=== PATIENT | male | born 1960 | race Caucasian/White ===

== ENCOUNTER 2017-07-28 12:49 | Emergency (ER) | payer BC ==
[2017-07-28 13:20] VITALS: BP 130/84
--- NOTE | 2017-07-28 14:01 | EDM.PDOC ---
ED HPI GENERAL MEDICAL PROBLEM - General Chief Complaint: Genitourinary Problem Stated Complaint: SICK Time Seen by Provider: 07/28/17 13:50 Source of Information: Reports: Patient History Limitations: Reports: No Limitations - History of Present Illness INITIAL COMMENTS - FREE TEXT/NARRATIVE: Patient presents to ER with c/o generalized fatigue and lethargy. He states he has been feeling very tired for the past few weeks and laying around a lot. He states he has a 2/10 back pain. He states this is how he has felt in the past when he has had a kidney infection. He states he has had several kidney infections. He states he was to be in [place] today to have bilateral nephrostomy tubes changed, an appointment that he has missed. He states he is very cold, with some chills and sweating last evening. Onset: Gradual Duration: Week(s):, Constant, Getting Worse Location: Reports: Back Quality: Reports: Ache, Dull Severity: Mild Improves with: Reports: None Worsens with: Reports: None Associated Symptoms: Reports: Fever/Chills, Malaise Back Pain Score (Numeric/FACES): 2 - Related Data Allergies Allergy/AdvReac Type Severity Reaction Status Date / Time No Known Allergies Allergy Verified 10/11/15 14:13 Home Meds: Home Meds . [No Known Home Meds] 09/13/16 [History] Past Medical History Other Genitourinary History: has bilateral nephrorostomy Musculoskeletal History: Reports: Back Pain, Chronic Neurological History: Reports: Other (See Below) Other Neuro History: brain tumor Immunologic History: Reports: Immunosuppression Oncologic (Cancer) History: Reports: Colon, Metastatic, Prostate, Other (See Below) Other Oncologic History: rectal CA - Past Surgical History GI Surgical History: Reports: Colostomy Other GI Surgeries/Procedures: has a colostomy Other Male Surgeries/Procedures: has bilaterial nephrorostomy tubes Musculoskeletal Surgical History: Reports: Shoulder Surgery Social & Family History - Tobacco Use Smoking Status *Q: Never Smoker Second Hand Smoke Exposure: No - Caffeine Use Caffeine Use: Reports: Soda - Alcohol Use Days Per Week of Alcohol Use: 5 - Recreational Drug Use Recreational Drug Use: No Recreational Drug Type: Reports: Marijuana/Hashish - Living Situation & Occupation Living situation: Reports: Occupation: Disabled ED ROS GENERAL - Review of Systems Review Of Systems: ROS reveals no pertinent complaints other than HPI. ED EXAM, GENERAL - Physical Exam Exam: See Below Exam Limited By: No Limitations General Appearance: Alert, WD/WN, No Apparent Distress Ears: Normal External Exam Nose: Normal Inspection Throat/Mouth: Normal Inspection, Normal Lips, Normal Teeth, Normal Gums, Normal Oropharynx, Normal Voice, No Airway Compromise Head: Atraumatic, Normocephalic Neck: Normal Inspection, Supple, Non-Tender, Full Range of Motion Respiratory/Chest: No Respiratory Distress, Normal Breath Sounds, No Accessory Muscle Use, Chest Non-Tender, Crackles (right base) Cardiovascular: Normal Peripheral Pulses, Regular Rate, Rhythm, No Edema GI/Abdominal: Normal Bowel Sounds Back Exam: Normal Inspection, CVA Tenderness (L) (nephrostomy), CVA Tenderness ( R) (nephrostomy) Extremities: Normal Inspection Neurological: Alert, Oriented Psychiatric: Normal Affect, Normal Mood Skin Exam: Warm, Dry, Intact, Normal Color, No Rash Lymphatic: No Adenopathy Course - Vital Signs Last Recorded V/S: Last Vital Signs Temp 98.8 F 07/28/17 13:18 Pulse 113 H 07/28/17 13:18 Resp 16 07/28/17 13:18 BP 130/84 07/28/17 13:18 Pulse Ox 99 07/28/17 13:18 - Orders/Labs/Meds Orders: Active Orders 24 hr Category Date Time Status CULTURE URINE [RM] Stat Lab 07/28/17 14:20 Received Labs: Laboratory Tests 07/28/17 07/28/17 07/28/17 Range/Units 14:00 14:00 14:20 WBC 14.1 H (5.0-10.0) 10^3/uL RBC 3.98 L (4.6-6.2) 10^6/uL Hgb 11.9 L (14.0-18.0) g/dL Hct 36.9 L (40.0-54.0) % MCV 92.7 (80-100) fL MCH 29.9 (27.0-34.0) pg MCHC 32.2 L (33.0-35.0) g/dL Plt Count 240 (150-450) 10^3/uL Neut % (Auto) 86.5 H (42.2-75.2) % Lymph % (Auto) 4.5 L (20.5-50.1) % [place] % (Auto) 8.8 H (2-8) % Eos % (Auto) 0.1 L (1.0-3.0) % Baso % (Auto) 0.1 (0.0-1.0) % Sodium 135 (135-145) mmol/L Potassium 4.3 (3.6-5.0) mmol/L Chloride 99 L (101-111) mmol/L Carbon Dioxide 24.0 (21.0-31.0) mmol/L Anion Gap 16.3 BUN 14 (7-18) mg/dL Creatinine 1.0 (0.6-1.3) mg/dL Est Cr Clr Drug Dosing 78.95 mL/min Estimated GFR (MDRD) > 60 Glucose 111 H (74-105) mg/dL Calcium 9.2 (8.4-10.2) mg/dl Urine Color Yellow (YELLOW) Urine Appearance Turbid (CLEAR) Urine pH 5.5 (5.0-9.0) Ur Specific [place] 1.020 (1.005-1.030) Urine Protein 100 H (NEGATIVE) Urine Glucose (UA) Negative (NEGATIVE) Urine Ketones 40 H (NEGATIVE) Urine Occult Blood Moderate H (NEGATIVE) Urine Nitrite Negative (NEGATIVE) Urine Bilirubin Small H (NEGATIVE) Urine Urobilinogen 0.2 (0.2-1.0) mg/dL Ur Leukocyte Esterase Small H (NEGATIVE) Urine RBC 10-20 H /HPF Urine WBC 40-50 H (0-5/HPF) /HPF Ur Epithelial Cells Few /HPF Amorphous Sediment Moderate (0/HPF) /HPF Urine Bacteria Moderate H (0-FEW/HPF) /HPF Urine Mucus Few H /LPF Urine Yeast Moderate H (0/HPF) /HPF Departure - Departure Time of Disposition: 15:17 Disposition: Home, Self-Care 01 Condition: Fair Clinical Impression: Pyelonephritis, Altered elimination pattern due to nephrostomy, 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 Dumont in 2-3 days Make appointment to have nephrostomy tubes changed - My Orders Last 24 Hours: My Active Orders 07/28/17 14:20 CULTURE URINE [] Stat - Assessment/Plan Last 24 Hours: My Active Orders 07/28/17 14:20 CULTURE URINE [] Stat
[2017-07-28 14:27] LABS: CHLORIDE,CL 99 mmol/L (101-111); SODIUM,NA 135 mmol/L (135-145)
== END 2017-07-28 15:26 | disposition home or self-care (01) ==
LOC: DL.ED 12:49
DX: N12 Tubulo-interstitial nephritis, not specified as acute or chronic (principal); R53.83 Other fatigue; C20 Malignant neoplasm of rectum; C79.9 Secondary malignant neoplasm of unspecified site; Z93.6 Other artificial openings of urinary tract status; Z98.890 Other specified postprocedural states; Z85.038 Personal history of other malignant neoplasm of large intestine; Z85.46 Personal history of malignant neoplasm of prostate
CPT/HCPCS: 36415; 80048; 81001; 85025; 87086; 87088; 87186; 99283

== ENCOUNTER 2018-01-29 09:44 | Emergency (ER) | payer BC ==
--- NOTE | 2018-01-29 09:59 | EDM.PDOC ---
ED HPI GENERAL MEDICAL PROBLEM - General Chief Complaint: Gastrointestinal Problem Stated Complaint: constipation [phone] Time Seen by Provider: 01/29/18 09:57 Source of Information: Reports: Patient, Old Records, RN, RN Notes Reviewed History Limitations: Reports: No Limitations - History of Present Illness INITIAL COMMENTS - FREE TEXT/NARRATIVE: Presents from home by POV with c/o generalized abdominal pain/discomfort with constipation and no BM x10 days. Pt with Hx of rectal and prostate CA and ostomy and nephrostomy tubes. Denies fevers, chills, or vomiting. Admits to mild nausea and feeling that abd. is bloated. Duration: Day(s): (10), Constant, Getting Worse Location: Reports: Abdomen Quality: Reports: Ache, Other (cramping) Improves with: Reports: None Worsens with: Reports: None Associated Symptoms: Reports: No Other Symptoms - Related Data Allergies Allergy/AdvReac Type Severity Reaction Status Date / Time No Known Allergies Allergy Verified 10/11/15 14:13 Home Meds: Home Meds valACYclovir HCl [valACYclovir] 1 tab PO DAILY 01/29/18 [History] Past Medical History Gastrointestinal History: Reports: Chronic Constipation Other Genitourinary History: has bilateral nephrorostomy Musculoskeletal History: Reports: Back Pain, Chronic Neurological History: Reports: Other (See Below) Other Neuro History: brain tumor Immunologic History: Reports: Immunosuppression Oncologic (Cancer) History: Reports: Colon, Metastatic, Prostate, Other (See Below) Other Oncologic History: rectal CA - Past Surgical History GI Surgical History: Reports: Colostomy Other GI Surgeries/Procedures: has a colostomy Other Male Surgeries/Procedures: has bilaterial nephrorostomy tubes Musculoskeletal Surgical History: Reports: Shoulder Surgery Social & Family History - Family History Family Medical History: Noncontributory - Tobacco Use Smoking Status *Q: Never Smoker Second Hand Smoke Exposure: No - Caffeine Use Caffeine Use: Reports: Soda - Alcohol Use Days Per Week of Alcohol Use: 5 - Recreational Drug Use Recreational Drug Use: No Recreational Drug Type: Reports: Marijuana/Hashish - Living Situation & Occupation Living situation: Reports: , with Spouse Occupation: Disabled ED ROS GENERAL - Review of Systems Review Of Systems: ROS reveals no pertinent complaints other than HPI. ED EXAM, GI/ABD - Physical Exam Exam: See Below Exam Limited By: No Limitations General Appearance: Alert, Thin, Other (chronically ill appearing) Eyes: Bilateral: Normal Appearance (no scleral icterus) Nose: Normal Inspection Throat/Mouth: Normal Voice, No Airway Compromise, Other (dry oral membranes) Head: Atraumatic, Normocephalic Neck: Normal Inspection Respiratory/Chest: No Respiratory Distress, Lungs Clear, No Accessory Muscle Use , Decreased Breath Sounds Cardiovascular: Regular Rate, Rhythm GI/Abdominal Exam: Soft (with mild distention), Abnormal Bowel Sounds (rare tympanic bowel sounds), Other (empty ostomy bag LLQ abdomen). No: Guarding, Rigid, Rebound (Male) Exam: Deferred Rectal (Males) Exam: Deferred Back Exam: Normal Inspection Extremities: Normal Inspection Neurological: Alert, Oriented, No Motor/Sensory Deficits Psychiatric: Normal Mood Skin Exam: Warm, Dry, Intact, Normal Color, Zoster-Like Rash (resolving zoster Rt flank-abdomen) Course - Vital Signs Last Recorded V/S: Last Vital Signs Temp 36.5 C 01/29/18 10:03 Pulse 86 01/29/18 10:03 Resp 16 01/29/18 10:03 BP 139/105 H 01/29/18 10:03 Pulse Ox 100 01/29/18 10:03 - Orders/Labs/Meds Orders: Active Orders 24 hr Category Date Time Status Peripheral IV Care [RC] . DIRECTED Care 01/29/18 10:14 Active CULTURE URINE [RM] Stat Lab 01/29/18 10:38 Received Sodium Chloride 0.9% [Saline Flush] Med 01/29/18 10:13 Active 10 ml FLUSH ASDIRECTED PRN Peripheral IV Insertion Adult [OM.PC] Stat Oth 01/29/18 10:13 Ordered Medication Orders Sodium Chloride (Saline Flush) 10 ml FLUSH ASDIRECTED PRN PRN Reason: Keep Vein Open Last Admin: 01/29/18 10:53 Dose: 10 ml Labs: Laboratory Tests 01/29/18 01/29/18 01/29/18 Range/Units 10:22 10:22 10:22 WBC 12.4 H (5.0-10.0) 10^3/uL RBC 4.35 L (4.6-6.2) 10^6/uL Hgb 13.0 L (14.0-18.0) g/dL Hct 40.2 (40.0-54.0) % MCV 92.4 (80-100) fL MCH 29.9 (27.0-34.0) pg MCHC 32.3 L (33.0-35.0) g/dL Plt Count 329 D (150-450) 10^3/uL Neut % (Auto) 79.9 H (42.2-75.2) % Lymph % (Auto) 8.1 L (20.5-50.1) % [place] % (Auto) 8.1 H (2-8) % Eos % (Auto) 3.3 H (1.0-3.0) % Baso % (Auto) 0.6 (0.0-1.0) % Add Manual Diff Yes Neutrophils % (Manual) 82 H (42-75) % Lymphocytes % (Manual) 10 L (20-50) % Monocytes % (Manual) 7 (2-8) % Eosinophils % (Manual) 1 (1-3) % Sodium 132 L (135-145) mmol/L Potassium 4.2 (3.6-5.0) mmol/L Chloride 100 L (101-111) mmol/L Carbon Dioxide 22.0 (21.0-31.0) mmol/L Anion Gap 14.2 BUN 11 (7-18) mg/dL Creatinine 1.1 (0.6-1.3) mg/dL Est Cr Clr Drug Dosing 68.15 mL/min Estimated GFR (MDRD) > 60 BUN/Creatinine Ratio 10.00 Glucose 79 (74-105) mg/dL Lactic Acid 1.3 (0.5-2.2) mmol/L Calcium 8.8 (8.4-10.2) mg/dl Total Bilirubin 0.4 (0.2-1.0) mg/dL AST 18 (10-42) IU/L ALT 8 L (10-60) IU/L Alkaline Phosphatase 65 (42-121) IU/L Total Protein 7.1 (6.7-8.2) g/dl Albumin 3.5 (3.2-5.5) g/dl Globulin 3.6 Albumin/Globulin Ratio 0.97 Amylase 74 (28-100) U/L Lipase 31 (22-51) U/L Urine Color (YELLOW) Urine Appearance (CLEAR) Urine pH (5.0-9.0) Ur Specific [place] (1.005-1.030) Urine Protein (NEGATIVE) Urine Glucose (UA) (NEGATIVE) Urine Ketones (NEGATIVE) Urine Occult Blood (NEGATIVE) Urine Nitrite (NEGATIVE) Urine Bilirubin (NEGATIVE) Urine Urobilinogen (0.2-1.0) mg/dL Ur Leukocyte Esterase (NEGATIVE) Urine RBC /HPF Urine WBC (0-5/HPF) /HPF Ur Epithelial Cells /HPF Urine Bacteria (0-FEW/HPF) /HPF Urine Mucus /LPF Urine Yeast (0/HPF) /HPF 01/29/18 Range/Units 10:38 WBC (5.0-10.0) 10^3/uL RBC (4.6-6.2) 10^6/uL Hgb (14.0-18.0) g/dL Hct (40.0-54.0) % MCV (80-100) fL MCH (27.0-34.0) pg MCHC (33.0-35.0) g/dL Plt Count (150-450) 10^3/uL Neut % (Auto) (42.2-75.2) % Lymph % (Auto) (20.5-50.1) % [place] % (Auto) (2-8) % Eos % (Auto) (1.0-3.0) % Baso % (Auto) (0.0-1.0) % Add Manual Diff Neutrophils % (Manual) (42-75) % Lymphocytes % (Manual) (20-50) % Monocytes % (Manual) (2-8) % Eosinophils % (Manual) (1-3) % Sodium (135-145) mmol/L Potassium (3.6-5.0) mmol/L Chloride (101-111) mmol/L Carbon Dioxide (21.0-31.0) mmol/L Anion Gap BUN (7-18) mg/dL Creatinine (0.6-1.3) mg/dL Est Cr Clr Drug Dosing mL/min Estimated GFR (MDRD) BUN/Creatinine Ratio Glucose (74-105) mg/dL Lactic Acid (0.5-2.2) mmol/L Calcium (8.4-10.2) mg/dl Total Bilirubin (0.2-1.0) mg/dL AST (10-42) IU/L ALT (10-60) IU/L Alkaline Phosphatase (42-121) IU/L Total Protein (6.7-8.2) g/dl Albumin (3.2-5.5) g/dl Globulin Albumin/Globulin Ratio Amylase (28-100) U/L Lipase (22-51) U/L Urine Color Yellow (YELLOW) Urine Appearance Cloudy (CLEAR) Urine pH 6.0 (5.0-9.0) Ur Specific [place] 1.015 (1.005-1.030) Urine Protein 30 H (NEGATIVE) Urine Glucose (UA) Negative (NEGATIVE) Urine Ketones Negative (NEGATIVE) Urine Occult Blood Trace-lysed H (NEGATIVE) Urine Nitrite Negative (NEGATIVE) Urine Bilirubin Negative (NEGATIVE) Urine Urobilinogen 0.2 (0.2-1.0) mg/dL Ur Leukocyte Esterase Small H (NEGATIVE) Urine RBC 0-5 /HPF Urine WBC 40-50 H (0-5/HPF) /HPF Ur Epithelial Cells Occasional /HPF Urine Bacteria Moderate H (0-FEW/HPF) /HPF Urine Mucus Moderate H /LPF Urine Yeast Many H (0/HPF) /HPF Meds: Medications Generic Name Dose Route Start Last Admin Trade Name Freq PRN Reason Stop Dose Admin Sodium Chloride 10 ml 01/29/18 10:13 01/29/18 10:53 Saline Flush FLUSH 10 ml ASDIRECTED PRN Administration Keep Vein Open Discontinued Medications Generic Name Dose Route Start Last Admin Trade Name Freq PRN Reason Stop Dose Admin Sodium Chloride 1,000 mls @ 999 mls/hr 01/29/18 10:14 01/29/18 10:53 Normal Saline IV 01/29/18 11:14 999 mls/hr .BOLUS ONE Administration Iopamidol 75 ml 01/29/18 10:52 01/29/18 11:34 Isovue-300 (61%) IVPUSH 01/29/18 10:53 75 ml ONETIME ONE Administration - Radiology Interpretation Free Text/Narrative:: CT Abd/Pelvis: new massive ascites, chronic metastatic lesions and other findings as per Rad. report. 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 DIRECTED 01/29/18 10:38 CULTURE URINE [RM] Stat - Assessment/Plan Last 24 Hours: My Active Orders 01/29/18 10:13 Sodium Chloride 0.9% [Saline Flush] 10 ml FLUSH ASDIRECTED PRN Peripheral IV Insertion Adult [OM.PC] Stat 01/29/18 10:14 Peripheral IV Care [RC] . DIRECTED 01/29/18 10:38 CULTURE URINE [RM] Stat
[2018-01-29 10:05] VITALS: BP 139/105
[2018-01-29] MEDS ORDERED: Sodium Chloride 0.9% 10 ML Syringe FLUSH PRN (10:13)
[2018-01-29] MEDS ORDERED: Sodium Chloride 0.9% 1,000 ML IV ONE (10:14)
[2018-01-29 10:50] LABS: CHLORIDE,CL 100 mmol/L (101-111); SODIUM,NA 132 mmol/L (135-145)
[2018-01-29] MEDS ORDERED: Iopamidol 612 MG/ML 75 ML Bottle IVPUSH ONE (10:52)
--- NOTE | 2018-01-29 12:01 | CT ---
CLINICAL HISTORY: 57-year-old colorectal cancer patient with abdominal pain (colostomy but "no bowel movement for 10 days") who was reported on most recent CT scan this institution 03 June 2017 to have "bilateral nephrostomy tubes, renal cysts, cystectomy, and metastatic disease liver and both lung bas es". Reevaluate please. SCAN TECHNIQUE: Volume acquisition of data from the abdomen and pelvis obtained without oral contrast but during the intravenous 75 cc nonionic Isovue contrast while the patient was lying supine on the Siemens multislice scanner [place], [place]. All data archived in the PACS system for storage, reformatting and study. INTERPRETATION: Abnormal. 1. Massive ascites (new since May 2017 exam) fills the entire peritoneal cavity. Probable peritoneal tumor implants. 2. Large 5.0 x 6.0 x 7.0 cm diameter intrahepatic solid mass lesion left lobe of the liver that was p resent on previous exam 03 June. Two additional small mass lesions periphery right lobe. No abnormal dilatation of the intra/extrahepa tic biliary ducts. 3. Small hiatus hernia. Stomach, spleen, pancreas and adrenal glands otherwise unremarkable. No obsti pation or SBO. 4. Two large benign cyst upper pole right kidney measuring 3.5 and 4.0 cm diameter (bilateral uretera l stents). 5. Atheromatous calcifications normal caliber aortoiliac vessels. No sign of aneurysm or dissection. 6. Discrete two (2) nodular lower lobe parenchymal lung mass lesions, posterior segment each lung bas e, near the midline that were present on 01 May 2015 plain chest radiograph. Right central venous moris e. 7. Focally osteopenic L5 vertebral body. No osteoblastic skeletal lesion and no sign of lumbar fractu re or dislocation. CONCLUSION: Ascites (massive and new). Metastatic lesions liver and both lung bases. Bilateral ureteral stents and 2 large cysts right kidney.
== END 2018-01-29 13:05 ==
LOC: DL.ED 09:44
DX: T83.092A Other mechanical complication of nephrostomy catheter, initial encounter (principal); C20 Malignant neoplasm of rectum; C79.9 Secondary malignant neoplasm of unspecified site; R18.0 Malignant ascites; Z79.899 Other long term (current) drug therapy
CPT/HCPCS: 36415; 74177; 80053; 81001; 82150; 83605; 83690; 85025; 87086; 96360; 99285; J7030; J7050; Q9967

== ENCOUNTER 2018-03-29 19:52 | Emergency (ER) | payer BC, MEDICARE ==
[2018-03-29] MEDS ORDERED: Iopamidol 612 MG/ML 75 ML Bottle IVPUSH ONE (21:29)
[2018-03-30 07:01] LABS: SODIUM,NA 137 mmol/L (135-145)
[2018-03-30 07:02] LABS: ANION GAP 15.6; CHLORIDE,CL 104 mmol/L (101-111)
== END 2018-03-30 00:06 ==
LOC: DL.ED 19:52
DX: K56.609 Unspecified intestinal obstruction, unspecified as to partial versus complete obstruction (principal); R18.8 Other ascites; C16.9 Malignant neoplasm of stomach, unspecified; Z85.038 Personal history of other malignant neoplasm of large intestine; Z85.05 Personal history of malignant neoplasm of liver; Z85.841 Personal history of malignant neoplasm of brain
CPT/HCPCS: 36415; 74177; 80053; 85025; 85610; 96360; 96361; 99285; Q9967

== ENCOUNTER 2018-04-01 15:56 | Emergency (ER) | payer BC ==
[2018-04-01] MEDS ORDERED: Morphine 10 MG/ML Syringe IM ONE (16:46)
--- NOTE | 2018-04-01 17:04 | EDM.PDOC ---
Scribed by Hetal Yang 04/01/18 [id number] for Cristobal Loco MD ED HPI GENERAL MEDICAL PROBLEM - General Chief Complaint: General Stated Complaint: FROM SDS Time Seen by Provider: 04/01/18 16:32 Source of Information: Reports: Patient, RN, RN Notes Reviewed History Limitations: Reports: No Limitations - History of Present Illness INITIAL COMMENTS - FREE TEXT/NARRATIVE: Patient presents to ER with complaint of abdominal pain that began yesterday during paracentesis. Greater than 7 liters of fluid was removed from his abdomen. Patient denies fever or chills. [facility], however, his oncologist was out of the area and could not provide a hand written prescription for a controlled substance so he requested that I see him in the ER to provide him with temporary pain control. Patient has history of metastatic colorectal cancer. Onset: Gradual Duration: Getting Worse Location: Reports: Abdomen Quality: Reports: Ache Severity: Moderate Improves with: Reports: None Worsens with: Reports: None Associated Symptoms: Reports: No Other Symptoms - Related Data Allergies Allergy/AdvReac Type Severity Reaction Status Date / Time No Known Allergies Allergy Verified 04/01/18 16:09 Home Meds: Home Meds . [No Known Home Meds] 04/01/18 [History] Past Medical History - Past Health History Medical/Surgical History: Denies Medical/Surgical History HEENT History: Reports: None Cardiovascular History: Reports: None Respiratory History: Reports: Other (See Below) Other Respiratory History: bilateral lower lung lobe mets Gastrointestinal History: Reports: Chronic Constipation Genitourinary History: Reports: Other (See Below) Other Genitourinary History: has bilateral nephrorostomy Musculoskeletal History: Reports: Back Pain, Chronic Neurological History: Reports: Other (See Below) Other Neuro History: brain tumor Psychiatric History: Reports: Other (See Below) Other Psychiatric History: opoid dependency in controlled environment Endocrine/Metabolic History: Reports: Other (See Below) Other Endocrine/Metabolic History: ascites Hematologic History: Reports: None Immunologic History: Reports: Immunosuppression, Other (See Below) Other Immunologic History: HX OF CANCER Oncologic (Cancer) History: Reports: Colon, Metastatic, Prostate, Other (See Below) Other Oncologic History: rectal CA, pelvic carcinomatosis, bilateral lower lung mets and liver mets Dermatologic History: Reports: Eczema - Infectious Disease History Infectious Disease History: Reports: Shingles - Past Surgical History HEENT Surgical History: Reports: None Cardiovascular Surgical History: Reports: None GI Surgical History: Reports: Colonoscopy, Colostomy, EGD, Other (See Below) Other GI Surgeries/Procedures: has a colostomy, abdominal surg, rectal ca Male Surgical History: Reports: Other (See Below) Other Male Surgeries/Procedures: has bilaterial nephrorostomy tubes Musculoskeletal Surgical History: Reports: Shoulder Surgery Social & Family History - Family History Family Medical History: Noncontributory - Caffeine Use Caffeine Use: Reports: Soda - Living Situation & Occupation Living situation: Reports: , with Spouse Occupation: Disabled ED ROS GENERAL - Review of Systems Review Of Systems: ROS reveals no pertinent complaints other than HPI. ED EXAM, GENERAL - Physical Exam Exam: See Below Exam Limited By: No Limitations General Appearance: Other (chronically ill appearing) Head: Atraumatic, Normocephalic Respiratory/Chest: No Respiratory Distress Cardiovascular: Regular Rate, Rhythm GI/Abdominal: Normal Bowel Sounds, Soft, Tender (generalized), Other (ostomy bag in place. No peripheral erythema. Empty of contents.). No: Guarding, Rigid , Rebound Neurological: Alert, Oriented, No Motor/Sensory Deficits Course - Vital Signs Text/Narrative:: See nursing notes for vital signs. - Orders/Labs/Meds Meds: Medications Discontinued Medications Generic Name Dose Route Start Last Admin Trade Name Denisa PRN Reason Stop Dose Admin Morphine Sulfate 5 mg 04/01/18 16:46 04/01/18 17:00 Morphine IM 04/01/18 16:47 5 mg ONETIME ONE Administration Departure - Departure Time of Disposition: 16:46 Disposition: Home, Self-Care 01 Condition: Fair Clinical Impression: Metastatic colorectal cancer Abdominal pain Qualifiers: Abdominal location: generalized Qualified Code(s): R10.84 - Generalized abdominal pain - Discharge Information Instructions: Abdominal Pain, Adult, [id number], Pain Medicine Instructions Forms: ED Department Discharge Additional Instructions: RX: Hydrocodone APAP 5mg/325mg. *DO NOT DRIVE while under the influence of this medication. Use stool softener or laxative as needed to prevent constipation while taking the pain medication. Follow up with Dr. Malik or your primary doctor as needed for pain management. I have read and agree with the documentation that has been completed regarding this visit. By signing this record, I attest that the documentation was completed in my physical presence and is an accurate record of the encounter.
[2018-04-01 17:46] VITALS: BP 184/91
== END 2018-04-01 17:50 | disposition home or self-care (01) ==
LOC: DL.ED 15:56
DX: C19 Malignant neoplasm of rectosigmoid junction (principal); C79.9 Secondary malignant neoplasm of unspecified site
CPT/HCPCS: 96372; 99282; J2270

== ENCOUNTER 2018-04-21 16:32 | Emergency (ER) | payer BC ==
[2018-04-21 16:46] VITALS: BP 114/106
--- NOTE | 2018-04-21 16:59 | EDM.PDOC ---
ED HPI GENERAL MEDICAL PROBLEM - General Chief Complaint: Abdominal Pain Stated Complaint: full of fluids Time Seen by Provider: 04/21/18 16:35 Source of Information: Reports: Patient, Family ([id number]) History Limitations: Reports: No Limitations - History of Present Illness INITIAL COMMENTS - FREE TEXT/NARRATIVE: This 57 yo male patient reports increased abdominal pain and abdominal bloating. The patient reports his symptoms started about 4 days ago and have been getting worse. The patient reports he was admitted earlier this month to drain fluid off his abdomen. The patient sees Dr. Malik for colorectal cancer. Duration: Day(s):, Constant, Getting Worse Location: Reports: Abdomen Quality: Reports: Ache, Dull Severity: Severe Improves with: Reports: Medication Worsens with: Reports: None Treatments CONTENT ANALYST: Reports: Other Medication(s) ([place] (5/325) x 2) - Related Data Allergies Allergy/AdvReac Type Severity Reaction Status Date / Time No Known Allergies Allergy Verified 04/01/18 17:46 Home Meds: Home Meds Hydrocodone/Acetaminophen [Hydrocodon-Acetaminophen 5-325] 1 each PO Q4HR PRN [History] Past Medical History - Past Health History Medical/Surgical History: Denies Medical/Surgical History HEENT History: Reports: None Cardiovascular History: Reports: None Respiratory History: Reports: Other (See Below) Other Respiratory History: bilateral lower lung lobe mets Gastrointestinal History: Reports: Chronic Constipation Genitourinary History: Reports: Other (See Below) Other Genitourinary History: has bilateral nephrorostomy Musculoskeletal History: Reports: Back Pain, Chronic Neurological History: Reports: Other (See Below) Other Neuro History: brain tumor Psychiatric History: Reports: Other (See Below) Other Psychiatric History: opoid dependency in controlled environment Endocrine/Metabolic History: Reports: Other (See Below) Other Endocrine/Metabolic History: ascites Hematologic History: Reports: None Immunologic History: Reports: Immunosuppression, Other (See Below) Other Immunologic History: HX OF CANCER Oncologic (Cancer) History: Reports: Colon, Metastatic, Prostate, Other (See Below) Other Oncologic History: rectal CA, pelvic carcinomatosis, bilateral lower lung mets and liver mets Dermatologic History: Reports: Eczema - Infectious Disease History Infectious Disease History: Reports: Shingles - Past Surgical History HEENT Surgical History: Reports: None Cardiovascular Surgical History: Reports: None GI Surgical History: Reports: Colonoscopy, Colostomy, EGD, Other (See Below) Other GI Surgeries/Procedures: has a colostomy, abdominal surg, rectal ca Male Surgical History: Reports: Other (See Below) Other Male Surgeries/Procedures: has bilaterial nephrorostomy tubes Musculoskeletal Surgical History: Reports: Shoulder Surgery Social & Family History - Family History Family Medical History: Noncontributory - Tobacco Use Smoking Status *Q: Former Smoker Used Tobacco, but Quit: Yes Month/Year Tobacco Last Used: 0 - Caffeine Use Caffeine Use: Reports: Soda - Recreational Drug Use Recreational Drug Use: No - Living Situation & Occupation Living situation: Reports: , with Spouse Occupation: Disabled ED ROS GENERAL - Review of Systems Review Of Systems: ROS reveals no pertinent complaints other than HPI. ED EXAM, GI/ABD - Physical Exam Exam: See Below Exam Limited By: No Limitations General Appearance: Alert, WD/WN, Moderate Distress Eyes: Bilateral: Normal Appearance, EOMI Ears: Normal External Exam, Normal Canal, Hearing Grossly Normal, Normal TMs Nose: Normal Inspection, Normal Mucosa, No Blood Throat/Mouth: Normal Inspection, Normal Lips, Normal Teeth, Normal Gums, Normal Oropharynx, Normal Voice, No Airway Compromise Head: Atraumatic, Normocephalic Neck: Normal Inspection, Supple, Non-Tender, Full Range of Motion Respiratory/Chest: No Respiratory Distress, Lungs Clear, Normal Breath Sounds, No Accessory Muscle Use, Chest Non-Tender Cardiovascular: Normal Peripheral Pulses, Regular Rate, Rhythm, No Edema, No Gallop, No JVD, No Murmur, No Rub GI/Abdominal Exam: Distended, Rigid, Tender (Male) Exam: Deferred Rectal (Males) Exam: Deferred Back Exam: Normal Inspection, Full Range of Motion, NT Extremities: Normal Inspection, Normal Range of Motion, Non-Tender, Normal Capillary Refill, No Pedal Edema Neurological: Alert, Oriented, CN II-XII Intact, Normal Cognition, Normal Gait, Normal Reflexes, No Motor/Sensory Deficits Psychiatric: Normal Affect, Normal Mood Skin Exam: Warm, Dry, Intact, Normal Color, No Rash Lymphatic: No Adenopathy Course - Vital Signs Last Recorded V/S: Last Vital Signs Temp 36.9 C 04/21/18 16:44 Pulse 114 H 04/21/18 16:44 Resp 20 04/21/18 16:44 BP 114/106 H 04/21/18 16:44 Pulse Ox 98 04/21/18 16:44 - Orders/Labs/Meds Orders: Active Orders 24 hr Category Date Time Status CBC WITH AUTO DIFF [HEME] Urgent Lab 04/21/18 16:39 Ordered COMPREHENSIVE METABOLIC PN,CMP [CHEM] Urgent Lab 04/21/18 16:39 Ordered Departure - Departure Time of Disposition: 17:13 Disposition: DC/Tfer to Acute Hospital 02 Condition: Fair Clinical Impression: Metastatic colorectal cancer Abdominal pain Qualifiers: Abdominal location: generalized Qualified Code(s): R10.84 - Generalized abdominal pain Ascites Qualifiers: Ascites type: malignant Qualified Code(s): R18.0 - Malignant ascites - Discharge Information Forms: Interfacility Transfer EMTAL[employer] Care Plan Goals: Discussed the patient's symptoms with Dr. Malik. Dr. Malik discussed the information with Dr. Johnson and Dr. Carter accepted the patient for continued evaluation and management. The patient will go to [facility] in [place] with family in a private vehicle. - My Orders Last 24 Hours: My Active Orders 04/21/18 16:39 CBC WITH AUTO DIFF [HEME] Urgent COMPREHENSIVE METABOLIC PN,CMP [CHEM] Urgent - Assessment/Plan Last 24 Hours: My Active Orders 04/21/18 16:39 CBC WITH AUTO DIFF [HEME] Urgent COMPREHENSIVE METABOLIC PN,CMP [CHEM] Urgent
[2018-04-21 17:21] LABS: CHLORIDE,CL 102 mmol/L (101-111); SODIUM,NA 137 mmol/L (135-145)
== END 2018-04-21 17:40 ==
LOC: DL.ED 16:32
DX: C78.5 Secondary malignant neoplasm of large intestine and rectum (principal); R18.0 Malignant ascites; Z87.891 Personal history of nicotine dependence
CPT/HCPCS: 36415; 80053; 85025; 99285

== ENCOUNTER 2018-04-25 21:35 | Emergency (ER) | payer BC ==
[2018-04-25] MEDS ORDERED: Ondansetron 4 MG/2 ML SDV IV ONE (21:48)
[2018-04-25] MEDS ORDERED: Sodium Chloride 0.9% 1,000 ML IV ONE (21:48)
[2018-04-25 22:13] VITALS: BP 144/104
[2018-04-25 22:31] LABS: CHLORIDE,CL 101 mmol/L (101-111); SODIUM,NA 140 mmol/L (135-145)
[2018-04-25] MEDS ORDERED: HYDROmorphone 0.5 MG/0.5 ML Syringe IVPUSH ONE (22:31)
[2018-04-25] MEDS ORDERED: Metoclopramide 10 MG/2 ML SDV IVPUSH ONE (22:31)
[2018-04-26] MEDS ORDERED: HYDROmorphone 0.5 MG/0.5 ML Syringe IVPUSH ONE (00:31)
--- NOTE | 2018-04-29 14:33 | EDM.PDOC ---
ED HPI GENERAL MEDICAL PROBLEM - General Chief Complaint: Abdominal Pain Stated Complaint: PAIN Time Seen by Provider: 04/25/18 21:40 Source of Information: Reports: Patient, Family History Limitations: Reports: No Limitations - History of Present Illness INITIAL COMMENTS - FREE TEXT/NARRATIVE: ED with c/o general abdominal pain with vomiting. Patient hx colo rectal cancer with mets to liver, Colostomy and bilateral nephrostomies. Pain increasing throughout day, cramping and vomiting at least 5 times. Hx bowel obstructions in past. No fevers. Family note minimal oral intake. Occasional use of pain medication but not able to keep pills down today. Abdominal Pain Score (Numeric/FACES): 10 - Related Data Allergies Allergy/AdvReac Type Severity Reaction Status Date / Time No Known Allergies Allergy Verified 04/25/18 22:44 Home Meds: Home Meds Hydrocodone/Acetaminophen [Hydrocodon-Acetaminophen 5-325] 1 each PO Q4HR PRN [History] Past Medical History - Past Health History Medical/Surgical History: Denies Medical/Surgical History HEENT History: Reports: None Cardiovascular History: Reports: None Respiratory History: Reports: Other (See Below) Other Respiratory History: bilateral lower lung lobe mets Gastrointestinal History: Reports: Chronic Constipation, Other (See Below) Other Gastrointestinal History: ascities, fluid has been drained x2 Genitourinary History: Reports: Other (See Below) Other Genitourinary History: has bilateral nephrorostomy Musculoskeletal History: Reports: Back Pain, Chronic Neurological History: Reports: Other (See Below) Other Neuro History: brain tumor Psychiatric History: Reports: Other (See Below) Other Psychiatric History: opoid dependency in controlled environment Endocrine/Metabolic History: Reports: Other (See Below) Other Endocrine/Metabolic History: ascites Hematologic History: Reports: None Immunologic History: Reports: Immunosuppression, Other (See Below) Other Immunologic History: HX OF CANCER Oncologic (Cancer) History: Reports: Colon, Metastatic, Prostate, Other (See Below) Other Oncologic History: rectal CA, pelvic carcinomatosis, bilateral lower lung mets and liver mets Dermatologic History: Reports: Eczema - Infectious Disease History Infectious Disease History: Reports: Shingles - Past Surgical History HEENT Surgical History: Reports: None Cardiovascular Surgical History: Reports: None GI Surgical History: Reports: Colonoscopy, Colostomy, EGD, Other (See Below) Other GI Surgeries/Procedures: has a colostomy, abdominal surg, rectal ca Male Surgical History: Reports: Other (See Below) Other Male Surgeries/Procedures: has bilaterial nephrorostomy tubes Musculoskeletal Surgical History: Reports: Shoulder Surgery Social & Family History - Family History Family Medical History: Noncontributory - Tobacco Use Smoking Status *Q: Never Smoker - Caffeine Use Caffeine Use: Reports: None - Recreational Drug Use Recreational Drug Use: No - Living Situation & Occupation Living situation: Reports: , with Spouse Occupation: Disabled ED ROS GENERAL - Review of Systems Review Of Systems: See Below Constitutional: Reports: Chills, Weakness, Fatigue, Decreased Appetite. Denies : Fever HEENT: Reports: No Symptoms Respiratory: Reports: No Symptoms Cardiovascular: Reports: No Symptoms GI/Abdominal: Reports: Abdominal Pain, Decreased Appetite, Distension, Flatus ( small amount), Nausea, Vomiting. Denies: Diarrhea, Hematemesis, Melena Musculoskeletal: Reports: No Symptoms Skin: Reports: No Symptoms Neurological: Reports: No Symptoms Psychiatric: Reports: No Symptoms ED EXAM, GI/ABD - Physical Exam Exam: See Below Exam Limited By: No Limitations General Appearance: Alert, Mild Distress, Cachetic, Active Emesis (dry heaves) Eyes: Bilateral: EOMI Ears: Normal External Exam Nose: Normal Inspection Throat/Mouth: Normal Voice. No: Normal Oropharynx (membranes parched) Neck: Normal Inspection, Supple Respiratory/Chest: Decreased Breath Sounds (bases) Cardiovascular: Normal Peripheral Pulses, Regular Rate, Rhythm, Tachycardia GI/Abdominal Exam: Distended, Guarding, Tender, Abnormal Bowel Sounds ( hypoactive few rare right upper tympanic), Other (colostomy present, no stool in bag.). No: Normal Bowel Sounds Back Exam: Other (bilateral nephrostimy tubes, ) Extremities: Pedal Edema Neurological: Alert, Oriented, Normal Cognition, Slow to Respond Skin Exam: Warm, Dry, No Rash, Jaundice, Pallor Course - Vital Signs Last Recorded V/S: Last Vital Signs Temp 97.2 F 04/25/18 21:37 Pulse 105 H 04/25/18 22:12 Resp 16 04/25/18 22:12 BP 144/104 H 04/25/18 22:12 Pulse Ox 97 04/25/18 22:12 - Orders/Labs/Meds Labs: Laboratory Tests 06/03/18 06/03/18 Range/Units 21:59 21:59 WBC 11.1 H (5.0-10.0) 10^3/uL RBC 4.88 (4.6-6.2) 10^6/uL Hgb 14.8 D (14.0-18.0) g/dL Hct 45.1 (40.0-54.0) % MCV 92.4 (80-100) fL MCH 30.3 (27.0-34.0) pg MCHC 32.8 L (33.0-35.0) g/dL Plt Count 349 D (150-450) 10^3/uL Neut % (Auto) 82.7 H (42.2-75.2) % Lymph % (Auto) 9.7 L (20.5-50.1) % Jones % (Auto) 7.0 (2-8) % Eos % (Auto) 0.4 L (1.0-3.0) % Baso % (Auto) 0.2 (0.0-1.0) % Sodium 140 (135-145) mmol/L Potassium 4.3 (3.6-5.0) mmol/L Chloride 101 (101-111) mmol/L Carbon Dioxide 22.0 (21.0-31.0) mmol/L Anion Gap 21.3 BUN 28 H (7-18) mg/dL Creatinine 1.0 (0.6-1.3) mg/dL Est Cr Clr Drug Dosing 58.90 mL/min Estimated GFR (MDRD) > 60 BUN/Creatinine Ratio 28.00 Glucose 143 H (74-105) mg/dL Calcium 9.0 (8.4-10.2) mg/dl Total Bilirubin 1.0 (0.2-1.0) mg/dL AST 27 (10-42) IU/L ALT 10 (10-60) IU/L Alkaline Phosphatase 54 (42-121) IU/L Total Protein 7.1 (6.7-8.2) g/dl Albumin 3.7 (3.2-5.5) g/dl Globulin 3.4 Albumin/Globulin Ratio 1.09 Amylase 115 H (28-100) U/L Lipase 45 (22-51) U/L Meds: Medications Discontinued Medications Generic Name Dose Route Start Last Admin Trade Name Freq PRN Reason Stop Dose Admin Hydromorphone HCl 1 mg 04/25/18 22:31 04/25/18 22:38 Dilaudid IVPUSH 04/25/18 22:32 1 mg ONETIME ONE Administration Hydromorphone HCl 0.5 mg 04/26/18 00:31 04/26/18 00:41 Dilaudid IVPUSH 04/26/18 00:32 0.5 mg ONETIME ONE Administration Sodium Chloride 1,000 mls @ 200 mls/hr 04/25/18 21:48 04/25/18 22:04 Normal Saline IV 04/26/18 02:47 200 mls/hr .BOLUS ONE Administration Metoclopramide HCl 10 mg 04/25/18 22:31 04/25/18 22:41 Reglan IVPUSH 04/25/18 22:32 10 mg ONETIME ONE Administration Ondansetron HCl 4 mg 04/25/18 21:48 04/25/18 22:06 Zofran IV 04/25/18 21:49 4 mg ONETIME ONE Administration - Radiology Interpretation Free Text/Narrative:: CT abdomen Small bowel obstruction, Mild increase in size of 2 previous documented masses. - Re-Assessments/Exams Free Text/Narrative Re-Assessment/Exam: 04/29/18 14:41 Dr Tia Escobedo accepting of patient in transfer for further evaluation and management. Tx via [facility] Departure - Departure Time of Disposition: 01:40 Disposition: DC/Tfer to Acute Hospital 02 Condition: Undetermined Clinical Impression: Small bowel obstruction, Primary cancer of rectum with metastasis from rectum to other site Abdominal pain Qualifiers: Abdominal location: generalized Qualified Code(s): R10.84 - Generalized abdominal pain - Discharge Information Referrals: Torres Hernadez MD [Primary Care Provider] - Forms: ED Department Discharge
== END 2018-04-26 00:45 ==
LOC: DL.ED 21:35
DX: K56.609 Unspecified intestinal obstruction, unspecified as to partial versus complete obstruction (principal); C20 Malignant neoplasm of rectum; C79.89 Secondary malignant neoplasm of other specified sites
CPT/HCPCS: 36415; 74176; 80053; 82150; 83690; 85025; 87040; 96361; 96374; 96375; 96376; 99285; J1170; J2405; J2765; J7030